=== PATIENT | female | born 1950 | race Caucasian/White ===

== ENCOUNTER 2017-03-28 23:42 | Emergency (ER) | payer OTHER ==
[~2017-03-28] VITALS: Ht 162.6 cm; Wt 68.0 kg
[2017-03-29] MEDS ORDERED: HYDROmorphone HCL 2 MG TAB PO ONE ×2 (01:00→03:30)
[2017-03-29] MEDS ORDERED: ONDANSETRON ODT 4 MG TAB PO ONE (01:00)
[2017-03-29] MEDS ORDERED: ETOMIDATE (2MG/ML) 20ML VIAL IV ONE (02:45)
[2017-03-29 04:43] VITALS: BP 112/53
== END 2017-03-29 04:52 | disposition home or self-care (01) ==
LOC: ER 23:44
DX: S42.302A Unspecified fracture of shaft of humerus, left arm, initial encounter for closed fracture (principal); X58.XXXA Exposure to other specified factors, initial encounter; Y93.89 Activity, other specified; Y92.89 Other specified places as the place of occurrence of the external cause; Y99.8 Other external cause status
CPT/HCPCS: 24505; 73020; 73030; 94761; 99152; 99285; Q0162